=== PATIENT | male | born 1965 | race Caucasian/White ===

== ENCOUNTER 2023-12-15 04:58 | Emergency (ER) | payer MEDICAID ==
[~2023-12-15] VITALS: Ht 190.5 cm; Wt 98.2 kg
[2023-12-15 04:59] VITALS: BP 151/73; PULSE 94; RESP 16; TEMP 97.3; O2SAT 90
[2023-12-15] MEDS: proparacaine 0.5% ophthalmic drops 15ml LEFTEYE ONE (05:31)
[2023-12-15] MEDS: fluorescein sod 1mg ophthalmic strip LEFTEYE ONE (05:32)
== END 2023-12-15 05:45 | disposition home or self-care (01) ==
LOC: ER 05:00
DX: S05.02XA Injury of conjunctiva and corneal abrasion without foreign body, left eye, initial encounter (principal); X58.XXXA Exposure to other specified factors, initial encounter; Y93.89 Activity, other specified; Y92.89 Other specified places as the place of occurrence of the external cause; Y99.8 Other external cause status
CPT/HCPCS: 99283; J3490

== ENCOUNTER 2024-07-11 10:37 | Emergency (ER) | payer MEDICAID ==
[~2024-07-11] VITALS: Ht 193 cm; Wt 102.3 kg
[2024-07-11 10:59] LABS: BASOPHILS # (AUTO) 0.1 X10'3 (0-0.2); BASOPHILS % (AUTO) 0.6 % (0-1); EOSINOPHILS # (AUTO) 0.2 X10'3 (0-0.9); EOSINOPHILS % (AUTO) 2.2 % (0-6); HEMATOCRIT 50.5 % (42.0-52.0); HEMOGLOBIN 17.5 g/dl (14.0-17.9); LYMPHOCYTES # (AUTO) 1.2 X10'3 (1.1-4.8); LYMPHOCYTES % (AUTO) 13.1 % (21-51); MEAN CORPUSCULAR HEMOGLOBIN 33.9 PG (27.0-31.0); MEAN CORPUSCULAR HGB CONC 34.6 g/dL (33.0-36.5); MEAN CORPUSCULAR VOLUME 97.9 FL (78-98); MEAN PLATELET VOLUME 8.5 FL (7.4-10.4); MONOCYTES # (AUTO) 0.7 X10'3 (0-0.9); MONOCYTES % (AUTO) 8.3 % (2-12); NEUTROPHILS # (AUTO) 6.7 X10'3 (1.8-7.7); NEUTROPHILS % (AUTO) 75.8 % (42-75); PLATELET COUNT 210 X10'3 (140-440); RED BLOOD COUNT 5.16 X10'6 (4.70-6.10); RED CELL DISTRIBUTION WIDTH 13.1 % (11.5-14.5); WHITE BLOOD COUNT 8.8 X10'3 (4.5-11.0)
--- NOTE | 2024-07-11 11:11 | RADIOLOGY REPORT ---
CHEST RADIOGRAPH Indication: CP Technique: Single frontal view of the chest was obtained Comparison: FINDINGS: The cardiac silhouette is unremarkable. The lungs demonstrate left basilar airspace opacities. The pu lmonary vasculature is unremarkable. There is no pleural effusion.. There is no pneumothorax. IMPRESSION: 1. Left basilar airspace opacification.
[2024-07-11 11:17] LABS: ALANINE AMINOTRANSFERASE 22 U/L (12-78); ALBUMIN 3.7 G/DL (3.4-5.0); ALKALINE PHOSPHATASE 89 IU/L (46-116); ANION GAP 7 (8-16); ASPARTATE AMINO TRANSFERASE 15 U/L (10-37); BILIRUBIN,TOTAL 0.7 MG/DL (0.1-1.0); BLOOD UREA NITROGEN 11 MG/DL (7-18); BUN/CREATININE RATIO 13.9 (10.0-20.0); CALCIUM 8.9 MG/DL (8.5-10.1); CHLORIDE 104 MMOL/L (99-107); CREATININE 0.79 MG/DL (0.60-1.10); GLUCOSE 118 MG/DL (70-104); POTASSIUM 3.9 MMOL/L (3.5-5.1); SODIUM 142 MMOL/L (135-145); TOTAL CARBON DIOXIDE 31.5 MMOL/L (24-32); TOTAL PROTEIN 7.5 G/DL (6.4-8.2); eCRCL 122 ML/MIN; eGFR > 90 ML/MIN
[2024-07-11 11:24] LABS: PRO BRAIN NATRIURETIC PEPTIDE 44 PG/ML (0-125)
[2024-07-11 12:45] VITALS: TEMP 98.3
--- NOTE | 2024-07-11 13:10 | Physician Documentation ---
History of Present Illness ~ Chief Complaint: Chest Pain Stated Complaint: PAIN IN ARM PIT/CHEST WALL Time Seen by MD: 12:49 HPI 58-year-old male history of COPD presenting for right shoulder pain. Symptoms began this morning. No shortness of breath no fever no cough. His symptoms are worse with any shoulder movement. Nonexertional Medication Reconciliation Allergies: Coded Allergies: No Known Allergies (Unverified , 12/15/23) Review of Systems All Other Systems at this time: Reviewed and Negative Constitutional: Denies: fever Respiratory: Denies: cough, shortness of breath Cardiovascular: Denies: chest pain Gastrointestinal: Denies: abdominal pain, nausea, vomiting Physical Exam Vital Signs: RN Vital Signs have been reviewed: Yes, Temperature: 98.3, Source: Oral, Heart Rate: 94, Respiratory Rate: 16, BP: 138/98, Pulse Oximetry: 95, Weight: 102.270 Oxygen Flow Rate: 0 Physical Exam Well-appearing no distress resting comfortably in bed No JVD Lungs clear to auscultation bilaterally cardiac no murmur Abdomen is soft nontender Lower extremity no edema Progress Progress Note Labs independently interpreted by myself shows no abnormality Results/Orders Reviewed/noted all lab results: Yes Results/Orders Orders - LADY LUIS MD Chest,Single View (07/11/24 10:45) Monitor (07/11/24 10:45) Saline Lock (07/11/24 10:45) Oxygen (07/11/24 10:45) Completed Orders - LADY LUIS MD Chest,Single View (07/11/24 10:45) Cbc/Diff (07/11/24 10:45) PBNP (07/11/24 10:45) CMP (07/11/24 10:45) Hs Troponin I W Calculations (07/11/24 10:45) Hs Troponin I W Calculations (07/11/24 12:45) Ketorolac Trometh 15mg/Ml Vial (Toradol (07/11/24 14:00) Vital Signs 07/11/24 07/11/24 07/11/24 07/11/24 10:43 11:28 11:28 12:45 Temp 97.5 98.3 Pulse 94 92 94 Resp 18 19 20 16 B/P (MAP) 137/87 139/91 (107) 138/98 (111) Pulse Ox 94 98 95 O2 Flow Rate 0 0 07/11/24 07/11/24 07/11/24 07/11/24 14:08 14:14 14:54 14:54 Pulse 87 91 91 Resp 18 17 17 17 B/P (MAP) 162/95 (117) 152/106 152/106 (121) Pulse Ox 91 93 93 Laboratory Tests Test 07/11/24 10:49 07/11/24 13:09 White Blood Count 8.8 Red Blood Count 5.16 Hemoglobin 17.5 Hematocrit 50.5 Mean Corpuscular Volume 97.9 Mean Corpuscular Hemoglobin 33.9 H Mean Corpuscular Hemoglobin Concent 34.6 Red Cell Distribution Width 13.1 Platelet Count 210 Mean Platelet Volume 8.5 Neutrophils (%) (Auto) 75.8 H Lymphocytes (%) (Auto) 13.1 L Monocytes (%) (Auto) 8.3 Eosinophils (%) (Auto) 2.2 Basophils (%) (Auto) 0.6 Neutrophils # (Auto) 6.7 Lymphocytes # (Auto) 1.2 Monocytes # (Auto) 0.7 Eosinophils # (Auto) 0.2 Basophils # (Auto) 0.1 CBC Comment Sodium Level 142 Potassium Level 3.9 Chloride Level 104 Carbon Dioxide Level 31.5 Anion Gap 7 L Blood Urea Nitrogen 11 Creatinine 0.79 Estimated GFR/1.73 m2 > 90 BUN/Creatinine Ratio 13.9 Glucose Level 118 H Calcium Level 8.9 Total Bilirubin 0.7 Aspartate Amino Transf (AST/SGOT) 15 Alanine Aminotransferase (ALT/SGPT) 22 Alkaline Phosphatase 89 Troponin I High Sensitivity 35 33 Pro-B-Type Natriuretic Peptide 44 Total Protein 7.5 Albumin 3.7 Globulin 3.8 Albumin/Globulin Ratio 1.0 L Chemistry Comments Troponin I High Sens Percent Delta 5 Troponin I Hi Sens Absolute Change -2 EKG/XRAY/CT/US/VASC/MRI EKG : Additional Comment I independently interpreted EKG time 10:46 a.m. indication syncope normal sinus rhythm rate 98 normal axis normal intervals no ST or T-wave abnormality Chest X-Ray : Additional Comments Chest x-ray independently interpreted by myself no pneumothorax no rib fracture normal mediastinal silhouette Heart Score: Heart Score Response (Comments) Value History Slightly Suspicious 0 EKG Normal 0 Age 45-64 1 Risk Factors 1 or 2 risk factors 1 Troponin Normal limit 0 Total 2 Medical Decision Making Differential Dx:Considerations: Include: angina, aortic dissection, chest wall pain Departure Disposition: HOME / SELF CARE / HOMELESS Impression: Primary Impression: Shoulder pain Qualified Codes: M25.511 - Pain in right shoulder Additional Impression Text 58-year-old male presenting for pain in his right shoulder. EKG and blood work are reassuring. His symptoms are clearly reproducible. No shortness of breath nonexertional symptoms. Additional Instructions: Your EKG and blood work were very reassuring. Your symptoms are likely musculoskeletal. If you develop any difficulty breathing or worsening discomfort please return to the emergency department for further evaluation and treatment. If you have persistent symptoms do not improve with rest and anti- inflammatories you should follow up with your primary care physician in the next few days Referrals: NO PRIMARY CARE PROVIDER (PCP) Signature Scribe Signature: No scribe Attestation: No scribe LADY LUIS MD July 11, 2024 13:10
[2024-07-11] MEDS: ketorolac trometh 15mg/ml vial 15 MG/ML ML IV ONE (14:14)
[2024-07-11 14:54] VITALS: BP 152/106; PULSE 91; RESP 17; O2SAT 93
== END 2024-07-11 14:56 | disposition home or self-care (01) ==
LOC: ER 10:37
DX: M25.511 Pain in right shoulder (principal); J44.9 Chronic obstructive pulmonary disease, unspecified
CPT/HCPCS: 36415; 71045; 80053; 83880; 84484; 85025; 93005; 96374; 99285; J1885